=== PATIENT | male | born 1985 | race African-American/Black ===

== ENCOUNTER 2016-08-06 08:43 | Emergency (ER) | payer OTHER ==
[~2016-08-06] VITALS: Ht 190.5 cm; Wt 81.6 kg
[2016-08-06 08:55] VITALS: BP 135/66
[2016-08-06] MEDS ORDERED: CYCL10TA2 PO (09:00)
[2016-08-06] MEDS ORDERED: NAPROXEN 500 MG TABLET ONE (09:01)
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
[2016-08-06] MEDS ORDERED: NAPROXEN 500 MG TABLET PO ONE (09:15)
== END 2016-08-06 09:09 | disposition home or self-care (01) ==
LOC: ER 08:43
DX: S39.012A Strain of muscle, fascia and tendon of lower back, initial encounter (principal); J45.909 Unspecified asthma, uncomplicated; V43.62XA Car passenger injured in collision with other type car in traffic accident, initial encounter; Y93.89 Activity, other specified; Y92.410 Unspecified street and highway as the place of occurrence of the external cause; Y99.8 Other external cause status
CPT/HCPCS: 99283

== ENCOUNTER 2018-06-16 11:49 | Emergency (ER) | payer SELFPAY ==
[~2018-06-16] VITALS: Ht 190.5 cm; Wt 86.2 kg
[~2018-06-16 11:49] MED LIST: CYCL10TA2 PO
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
[2018-06-16 14:28] VITALS: BP 127/63
--- NOTE | 2018-06-16 14:44 | RAD ---
Three-view lumbar spine series Clinical indications: Fall. Low back pain for 3 days. FINDINGS: No compression fracture or discitis or lytic process or anterolisthesis is evident. The transverse processes are intact. IMPRESSION: No acute fracture. Electronically signed by: Emir Angelo MD (06/16/2018 2:41 PM) [facility]
== END 2018-06-16 14:31 | disposition left against medical advice (07) ==
LOC: ER 11:49
DX: M54.5 Low back pain (principal); J45.909 Unspecified asthma, uncomplicated; V43.62XA Car passenger injured in collision with other type car in traffic accident, initial encounter; Y93.89 Activity, other specified; Y92.410 Unspecified street and highway as the place of occurrence of the external cause; Y99.8 Other external cause status
CPT/HCPCS: 72100; 99284

== ENCOUNTER 2018-06-19 07:34 | Emergency (ER) | payer SELFPAY ==
[~2018-06-19] VITALS: Ht 190.5 cm; Wt 86.2 kg
[2018-06-19] MEDS ORDERED: KETOROLAC 60 MG/2 ML VIAL. IM ONE (08:15)
[2018-06-19] MEDS ORDERED: CYCL10TA2 PO (08:16)
[2018-06-19] MEDS ORDERED: METH4TAB2 PO (08:16)
[2018-06-19] MEDS ORDERED: NAPR-683 PO (08:16)
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
[2018-06-19 08:17] VITALS: BP 144/82
== END 2018-06-19 08:41 | disposition home or self-care (01) ==
LOC: ER 07:34
DX: S39.012A Strain of muscle, fascia and tendon of lower back, initial encounter (principal); J45.909 Unspecified asthma, uncomplicated; Z86.39 Personal history of other endocrine, nutritional and metabolic disease; V43.62XA Car passenger injured in collision with other type car in traffic accident, initial encounter; Y93.89 Activity, other specified; Y92.89 Other specified places as the place of occurrence of the external cause; Y99.8 Other external cause status
CPT/HCPCS: 96372; 99283; J1885

== ENCOUNTER 2019-08-12 08:45 | Emergency (ER) | payer OTHER ==
[~2019-08-12] VITALS: Ht 190.5 cm; Wt 84.0 kg
[~2019-08-12 08:45] MED LIST changes: +METH4TAB2 PO; +NAPR-683 PO
[2019-08-12 08:55] VITALS: BP 139/79
[2019-08-12] MEDS ORDERED: FLUORESCEIN OPHTH TEST STRIP. OD ONE (09:15)
[2019-08-12] MEDS ORDERED: TETRACAINE 0.5% OPHTH SOLUTION 4ML BOTTLE. OD ONE (09:15)
[2019-08-12] MEDS ORDERED: DIPH,PERTUSS(ACELL),TET VAC/PF 0.5 ML SYRINGE. VAX IM ONE (09:45)
[2019-08-12] MEDS ORDERED: GENT5DRO3 OD (10:17)
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
== END 2019-08-12 10:28 | disposition home or self-care (01) ==
LOC: ER 08:45
DX: S05.01XA Injury of conjunctiva and corneal abrasion without foreign body, right eye, initial encounter (principal); J45.909 Unspecified asthma, uncomplicated; X79.XXXA Intentional self-harm by blunt object, initial encounter; Y92.89 Other specified places as the place of occurrence of the external cause; Y93.89 Activity, other specified; Y99.8 Other external cause status
CPT/HCPCS: 90471; 90715; 99283

== ENCOUNTER 2020-04-19 11:10 | Emergency (ER) | payer OTHER ==
[~2020-04-19] VITALS: Ht 190.5 cm; Wt 81.6 kg
[~2020-04-19 11:10] MED LIST changes: +GENT5DRO3 OD
[2020-04-19] MEDS ORDERED: CYCL10TA2 PO (12:40)
[2020-04-19] MEDS ORDERED: NAPR-514 PO (12:40)
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
[2020-04-19 12:50] VITALS: BP 136/74
== END 2020-04-19 12:50 | disposition home or self-care (01) ==
LOC: ER 11:10
DX: S39.012A Strain of muscle, fascia and tendon of lower back, initial encounter (principal); J45.909 Unspecified asthma, uncomplicated; V49.59XA Passenger injured in collision with other motor vehicles in traffic accident, initial encounter; Y92.488 Other paved roadways as the place of occurrence of the external cause; Y93.89 Activity, other specified; Y99.8 Other external cause status
CPT/HCPCS: 99283

== ENCOUNTER 2021-03-24 09:59 | Emergency (ER) | payer OTHER ==
[~2021-03-24] VITALS: Ht 190.5 cm; Wt 92.4 kg
[~2021-03-24 09:59] MED LIST changes: +CYCL10TA19 PO; -CYCL10TA2 PO; +NAPR-514 PO
[2021-03-24 10:16] VITALS: BP 165/71
--- NOTE | 2021-03-24 11:13 | RAD ---
XR CHEST 1V History: Reason: Short of breath / Spl. Instructions: / History: Comparison: None. Findings: No consolidation or pleural effusion. Normal heart size. No pneumothorax. Impression: 1. No acute cardiopulmonary process. Electronically signed by: Trip Rodriguez DO (03/24/2021 11:10 AM) [id number]
--- NOTE | 2021-03-24 11:19 | PHYS DOC ---
Past Medical History Past Medical History: Asthma Past Surgical History: No Surgical History Additional Past Surgical Histo: thyroid Smoking Status: Never Smoker Alcohol Use: None Drug Use: None General Adult EDM: Chief Complaint: SHORTNESS OF BREATH HPI: HPI: Patient is a 35-year-old male presents to the emergency department complaining of short periods of shortness of breath at home over the past 2 days. Patient reports at night he has sensations that he cannot catch his breath that lasts for a few minutes and then goes away. Patient reports this happened again this morning after he woke up. Patient currently denies shortness of breath, chest pains, chest or nasal congestion. Denies loss of taste with loss of smell ,denies fever or chills, denies known exposure to the COVID-19 virus or other individuals that are ill, reports he has not received a flu or COVID vaccination. Patient denies being a cigarette smoker, denies alcohol or illicit drug use. Patient denies family history of sudden cardiac . Reports some people in his family do have high blood pressure. Patient reports similar symptoms when he was younger and required an anxiety medication however has not had these sensations in several years. Patient denies homicidal or suicidal ideations, denies any new stressors in his life. Review of Systems: Review of Systems: 14 body systems of review of systems have been reviewed. See HPI for pertinent positives and negative responses, otherwise all other systems are negative, nonpertinent or noncontributory. Constitutional: Negative except as outlined in HPI above. Skin: Negative except as outlined in HPI above. Eyes: Negative except as outlined in HPI above. HENT: Negative except as outlined in HPI above. Respiratory: Negative except as outlined in HPI above. Cardiovascular: Negative except as outlined in HPI above. GI: Negative except as outlined in HPI above. : Negative except as outlined in HPI above. Musculoskeletal: Negative except as outlined in HPI above. Integument: Negative except as outlined in HPI above. Neurologic: Negative except as outlined in HPI above. Endocrine: Negative except as outlined in HPI above. Lymphatic: Negative except as outlined in HPI above. Psychiatric: Negative except as outlined in HPI above. Heart Score: C/O Chest Pain: No Risk Factors: Risk Factors: DM, Current or recent (<one month) smoker, HTN, HLP, family history of CAD, obesity. Risk Scores: Score 0 - 3: 2.5% MACE over next 6 weeks - Discharge Home Score 4 - 6: 20.3% MACE over next 6 weeks - Admit for Clinical Observation Score 7 - 10: 72.7% MACE over next 6 weeks - Early Invasive Strategies Current Medications: Current Medications Medications (Trade) Dose Ordered Sig/Edyta Start Time Stop Time Status Last Admin Dose Admin Lorazepam (Ativan) 1 mg 1X ONCE 03/24/21 10:45 03/24/21 10:46 DC 03/24/21 10:50 1 MG Allergies: Allergies: Allergies Coded Allergies Type Severity Reaction Last Updated Verified No Known Drug Allergies 03/24/21 No Physical Exam: PE: Constitutional: Well developed, well nourished, no acute distress, non-toxic appearance. 35-year-old male appears anxious otherwise in no apparent distress. HENT: Normocephalic, atraumatic. Eyes: Conjunctiva normal, no discharge. Neck: Normal range of motion, no stridor. Cardiovascular: No cyanosis appreciated, distal cap refill less than 2 seconds. Heart sounds S1-S2 auscultation, RRR. Lungs & Thorax: Patient is in no respiratory distress, no audible adventitious lung sounds appreciated. Lung sounds clear to auscultation in all lung [place]. Abdomen: Nontender, no abnormalities noted. Skin: Warm, dry, no erythema, no rash. Back: No tenderness, no deformities. Extremities: No tenderness, no cyanosis, no clubbing, ROM intact, no edema. Neurologic: Alert and oriented X 3, normal motor function, normal sensory function, no focal deficits noted. Psychologic: Affect anxious, judgement normal, mood normal. Current Patient Data: Vital Signs: Vital Signs Date Time Temp Pulse Resp B/P (MAP) Pulse Ox O2 Delivery O2 Flow Rate FiO2 03/24/21 10:16 98.6 24 24 165/71 (102) 100 Room Air 98.6 EKG: EKG: [] Radiology/Procedures: Radiology/Procedures: STATUS: REG ER ORD. PHYSICIAN: DENISE JEFFERSON APRN REASON: Short of breath PROCEDURE: CHEST AP ONLY XR CHEST 1V History: Reason: Short of breath / Spl. Instructions: / History: Comparison: None. Findings: No consolidation or pleural effusion. Normal heart size. No pneumothorax. Impression: 1. No acute cardiopulmonary process. Electronically signed by: Trip Rodriguez DO (03/24/2021 11:10 AM) [id number] Course & Med Decision Making: Course & Med Decision Making Pertinent Labs and Imaging studies reviewed. (See chart for details) 35-year-old male, vital signs reviewed, presents with department concerning episodes of shortness of breath. Physical examination concerning for anxiety, discussed with patient we will order COVID-19 testing, chest x-ray, will give 1 mg p.o. Ativan, patient is amenable to ED planning. Patient's chest x-ray negative for acute process, ED nurse presented concerns patient did not want COVID testing, discussed chest x-ray findings at bedside, recommended PCR COVID testing, patient is amenable to this planning, discussed with patient we will obtain COVID for PCR testing and discharged home as a PUI, discussed with patient symptoms may be anxiety related, recommended follow-up with primary care for ongoing anxiety problems and management, patient gave verbal understanding of and is amenable to ED discharge planning. Patient is requesting refill of albuterol MDI and nebulizer medication, will provide this at discharge. Discussed with the patient all findings and diagnostic testing as well as the need to follow-up with their primary care provider for further evaluation and treatment or return to the ED if any new or worsening symptoms. Strict return precautions were also discussed at length, the patient voiced understanding and agreement with the discharge planning. The patient was nontoxic in appearance, in no apparent distress, and hemodynamically stable at the time of disposition. Dragon Disclaimer: Dragkatie Disclaimer: This electronic medical record was generated, in whole or in part, using a voice recognition dictation system. Departure Departure Impression: Primary Impression: Person under investigation for COVID-19 Additional Impressions: Anxiety Shortness of breath Disposition: 01 HOME / SELF CARE / HOMELESS Condition: GOOD Referrals: NO PCP (PCP) Patient Instructions: Anxiety and Panic Attacks Additional Instructions: You were seen today in the emergency department for periodic shortness of breath over the past 2 days. As we discussed there may be an anxiety component to your symptoms. You were treated today with 1 mg of Ativan tablet to help with your anxiety symptoms. Your chest x-ray did not show any concerning findings. Your vital signs were all within normal limits. As we discussed your COVID-19 test was obtained today and should be available within the next 24 to 48 hours. You will be contacted with positive results. I have attached COVID-19 virus information to this document, please review. I have also attached a list of area physicians to establish primary care. Please choose a primary care provider to see for ongoing anxiety and panic attack management. Return to the emergency department for worsening symptoms or other concerns. Thank you for visiting our Emergency Department. It was a pleasure taking care of you today in the emergency department and we appreciate you trusting us with your care. If any additional problems come up don't hesitate to return to visit us. Please follow up with your primary care provider so they can plan additional care if needed and know about the problem that you had. If symptoms worsen come back to the Emergency Department. Any concerning symptoms that start such as chest pain, shortness of air, weakness or numbness on one side of the body, running high fevers or any other concerning symptoms return to the ER. [facility] [address] [place] [address] [facility] [address] [place] [address] [facility] [address] [facility] [place] [address] [facility] [address] [place] [address] [facility] [address] [place] [address] [facility] [address] [place] [address] [facility] [address] [place] [address] [facility] [address] [place] [address] [facility] [address] [place] [address] [facility] [address] [place] [address] You have been tested for or diagnosed with COVID-19. It is an infection caused by a new type of coronavirus. COVID-19 will cause cold-like or mild flu symptoms in most. It can cause more severe symptoms like problems breathing in some. There is no treatment for COVID-19. The body will clear the infection over time. Self-care will help to ease discomfort. Steps to Take: Self-Care Rest as needed. Healthy habits may help you feel better. Steps include: Choose healthy foods including fruits and vegetables. Drink water throughout the day. Get plenty of sleep each night. If you smoke, try to quit. It may ease breathing. Avoid alcohol. Keep Others Healthy The virus can spread to others. Droplets are released every time you sneeze or c ough. The droplets can get into the mouth, nose, or eyes of people near you and lead to infection. To lower the chances of spreading COVID-19 to others: Stay at home until your doctor has said it is safe to leave. If you tested positive this will mean staying isolated until both of the following are true: At least 7 days have passed since the start of illness. You are free of fever for at least 72 hours without the use of medicine. During this time: - Avoid public areas, events, or transportation. Do not return to work or school until your doctor has said it is safe to do so. - Call ahead if you need to go to a medical center. Let them know you may have COVID-19. It will help them guide you where to go. They may also ask you to wear a facemask when you come to the office. - If you call for emergency medical services, let them know you may have COVID- 19. While at home: - Try to avoid close contact with others. Stay about 6 feet away. - If possible, spend most of your time in a separate room from others. - Use a face mask if you will be in close contact with others such as sharing a room or vehicle. - Have someone wipe down common surfaces in the home. Use household home health clinical supervisor every day on areas like doorknobs, counters, or sinks. - Cough or sneeze into a tissue. Throw the tissue away right after use. If a tissue is not available, cough or sneeze into your elbow. - Wash your hands often. Wash them after sneezing or coughing. Use soap and water and wash for at least 20 seconds. Alcohol based hand spice cleaner can be used if soap and water is not available. - Do not prepare food for others. Avoid sharing personal items like forks, spoons, or toothbrushes. - Avoid close contact with pets while you are sick. There is no evidence of the virus passing to pets. This is a safety step until more is known about this virus. Isolation can be frustrating. Social interaction can help. Keep in touch with friends and family through phone and tech options. You can still interact with others in your home, just keep a safe distance of about 6 feet. Follow-up: Your doctors office will check in with you to see if there are any changes in your health. You may be asked to keep track of symptoms to share with them. They will also let you know when you are clear to be in public again. Problems to Look Out For: Contact your doctor if your recovery is not going as you expect. Get emergency care if you have problems such as: - Trouble breathing - Nonstop chest pain or pressure - Changes in awareness, confusion, or problems waking - Lips or face have bluish color - Worsening of symptoms If you think you have an emergency, call for emergency medical services right away. As taken from [facility] Albuterol Sulfate (ALBUTEROL SULFATE NEB SOLN) 2.5 Mg/3 Ml Vial.neb 1 VIAL NEB PRN Q4HRS for asthma, #50 VIAL Prov: DENISE JEFFERSON SOCIAL SERVICE ASSISTANT 03/24/21 Albuterol Sulfate (PROAIR HFA INHALER) 8.5 Gm Hfa.aer.ad 2 PUFF IH PRN Q4-6HRS PRN for wheezing for 21 Days, #1 INHALER 0 Refills Prov: DENISE JEFFERSON APRN 03/24/21 DENISE JEFFERSON SOCIAL SERVICE ASSISTANT Mar 24, 2021 11:19
[2021-03-24] MEDS ORDERED: ALBU2.5V5 NEB (11:36)
[2021-03-24] MEDS ORDERED: ALBU2.5V8 IH (11:36)
== END 2021-03-24 11:33 | disposition home or self-care (01) ==
LOC: ER 09:59
DX: U07.1 COVID-19 (principal); F41.9 Anxiety disorder, unspecified; J45.909 Unspecified asthma, uncomplicated
CPT/HCPCS: 71045; 99284; U0003; U0005